=== PATIENT | male | born 1990 | race African-American/Black ===

== ENCOUNTER 2017-05-05 04:05 | Emergency (ER) | payer SELFPAY ==
[~2017-05-05 04:05] MED LIST: ALBUAER3 INH; OSEL75 PO; PRED20 PO
[2017-05-05 04:07] VITALS: BP 145/88; PULSE 96; RESP 16; TEMP 100.1; O2SAT 99
[2017-05-05] MEDS ORDERED: PRED-503 PO (05:09)
[2017-05-05] MEDS ORDERED: AMOX500C PO (05:09)
[2017-05-05] MEDS ORDERED: MAGICADU2 SWISH-SWAL (05:09)
--- NOTE | 2017-05-05 05:12 | PD ---
HPI Chief Complaint: ENT Complaint Time Seen by Provider: 05:01 Travel History International Travel<30 days: No Contact w/Intl Traveler<30days: No Traveled to known affect area: No History of Present Illness HPI 26-year-old black male presents with a six-day history of intermittent fever and chills, headache, ear pain, sore throat, cough, congestion and general malaise. Symptoms are moderate. Worse with swallowing. No alleviating factors. No nausea vomiting. No abdominal pain or diarrhea. No dysuria or frequency. PFSH Past Medical History Asthma: Yes Tetanus Vaccination: < 5 Years Past Surgical History Surgical History: No Previous Surgery Social History Alcohol Use: Yes (occ.) Tobacco Use: No Substance Use: No Allergies-Medications (Allergen,Severity, Reaction): Coded Allergies: No Known Allergies (Unverified , 05/05/17) Reported Meds & Prescriptions Reported Meds & Active Scripts Active Deltasone (Prednisone) 20 Mg Tab 40 Mg PO BID 3 Days Magic Mouthwash Adult Liq (Multi-Ingredient Mouthwash/Gargle) 120 Ml Susp 5 Ml SWISH-SWAL Q2HR Each 5mL contains: Nystatin 200,000units, Diphenhydramine 4.25mg, Viscous Lidocaine 10mg, Hseikh syrup 0.8 mL Amoxicillin 500 Mg Cap 1,000 Mg PO BID 10 Days Proair Hfa 8.5 GM Inh (Albuterol Sulfate) 90 Mcg/Act Aer 2 Puff INH Q4-6H PRN 108 mcg/actuation Prednisone 20 Mg Tab 20 Mg PO BID 5 Days Tamiflu (Oseltamivir Phosphate) 75 Mg Cap 75 Mg PO BID 7 Days Review of Systems Except as stated in HPI: all other systems reviewed are Neg Physical Exam Narrative GENERAL: Well-developed, well-nourished in no acute distress. Nontoxic appearing. HEAD: Normocephalic, atraumatic. EYES: Pupils equal round and reactive. Extraocular motions intact. No scleral icterus. No injection or drainage. ENT: TMs clear without erythema. The external auditory canals clear. Nose: clear . Posterior pharynx is erythematous and moist. Positive tonsillar edema with white exudate. Uvula midline. Airway patent. NECK: Trachea midline.Supple, tender cervical adenopathy, moves head freely. No central bony tenderness or spasm. CARDIOVASCULAR: Regular rate and rhythm without murmurs, gallops, or rubs. RESPIRATORY: Clear to auscultation. Breath sounds equal bilaterally. No wheezes , rales, or rhonchi. GASTROINTESTINAL: Abdomen soft, non-tender, nondistended. No hepato-splenomegaly , or palpable masses. No guarding. EXTREMITIES: No clubbing, cyanosis, or edema. No joint tenderness, effusion, or edema noted. BACK: Nontender without deformity or crepitance. No flank tenderness. Data Data Last Documented VS Vital Signs Date Time Temp Pulse Resp B/P (MAP) Pulse Ox O2 Delivery O2 Flow Rate FiO2 05/05/17 04:07 100.1 96 16 145/88 (107) 99 Room Air Orders Orders Amoxicillin (Trimox) (05/05/17 05:15) Ibuprofen (Motrin) (05/05/17 05:15) MDM Medical Decision Making Medical Screen Exam Complete: Yes Emergency Medical Condition: Yes Medical Record Reviewed: Yes Differential Diagnosis MDM: High Differential diagnoses: Strep throat, viral pharyngitis, mono, peritonsillar abscess, retropharyngeal abscess, Eleazar's angina Narrative Course Patient's given Amoxil 1 g by mouth and 800 mg of Motrin by mouth. This is acute pharyngitis Diagnosis Primary Impression: Acute pharyngitis Qualified Codes: J02.8 - Acute pharyngitis due to other specified organisms Patient Instructions: General Instructions Additional Instructions: Rest. Force fluids. Saltwater gargles. Tylenol and Advil. Chloraseptic [place] Cepastat lozenge. Amoxicillin, Magic mouthwash and prednisone. Follow-up with a primary care doctor in one week. Return to the ER if any problems. Med/Other Pt SpecificInfo: Prescription(s) given Scripts Prednisone (Deltasone) 20 Mg Tab 40 MG PO BID for 3 Days, #60 TAB 0 Refills Prov: Marisol Cuello MD 05/05/17 Bjitbtuh-Cyrydxrppndggzm-Gopjsoizf Liq (Magic Mouthwash Adult Liq) 120 Ml Susp 5 ML SWISH-SWAL Q2HR for Mouth sores, #120 ML 0 Refills Each 5mL contains: Nystatin 200,000units, Diphenhydramine 4.25mg, Viscous Lidocaine 10mg, Sheikh syrup 0.8 mL Prov: Marisol Cuello MD 05/05/17 Amoxicillin (Amoxicillin) 500 Mg Cap 1000 MG PO BID for Infection for 10 Days, CAP 0 Refills Prov: Marisol Cuello MD 05/05/17 Disposition: 01 DISCHARGE HOME Condition: Gen Jarvis May 05, 2017 05:12
[2017-05-05] MEDS ORDERED: IBUPROFEN 800 MG TAB PO ONE (05:15)
[2017-05-05] MEDS ORDERED: AMOXICILLIN (TRIHYDRATE) 500 MG CAP PO ONE (05:15)
== END 2017-05-05 05:45 | disposition home or self-care (01) ==
LOC: NEPD 04:05
DX: J02.8 Acute pharyngitis due to other specified organisms (principal)
CPT/HCPCS: 99284

== ENCOUNTER 2018-02-01 11:36 | Emergency (ER) | payer OTHER ==
[~2018-02-01] VITALS: Ht 180.3 cm; Wt 127.0 kg
[~2018-02-01 11:36] MED LIST changes: +AMOX500C PO; +MAGICADU2 SWISH-SWAL; +PRED-503 PO
[2018-02-01 11:37] VITALS: BP 143/79; PULSE 73; RESP 19; TEMP 97.7; O2SAT 97
[2018-02-01 11:45] VITALS: BP 166/80; PULSE 83; RESP 18; TEMP 98.2; O2SAT 98
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
[2018-02-01] MEDS ORDERED: ROBA500T PO (12:22)
[2018-02-01] MEDS ORDERED: IBUP1TAB7 PO (12:22)
[2018-02-01] MEDS ORDERED: METHOCARBAMOL 500 MG TAB PO ONE (12:30)
[2018-02-01] MEDS ORDERED: IBUPROFEN 800 MG TAB PO ONE (12:30)
== END 2018-02-01 12:46 | disposition home or self-care (01) ==
LOC: NEPD 11:36
DX: S46.812A Strain of other muscles, fascia and tendons at shoulder and upper arm level, left arm, initial encounter (principal); J45.909 Unspecified asthma, uncomplicated; V49.40XA Driver injured in collision with unspecified motor vehicles in traffic accident, initial encounter; Z79.899 Other long term (current) drug therapy
CPT/HCPCS: 99283